=== PATIENT | male | born 1940 | race Caucasian/White ===

== ENCOUNTER 2019-12-09 16:25 | Emergency (ER) | payer MEDICARE, SELFPAY ==
[2019-12-09 16:26] VITALS: BP 154/81; PULSE 79; RESP 16; TEMP 36.2; O2SAT 97; BMI 38.0
--- NOTE | 2019-12-09 16:55 | ED.VIS.GEN ---
History of Present Illness Chief Complaint: Upper Extremity Injury Informant: Patient, Family Onset: Today Narrative: Mechanical fall 20 minutes prior to arrival. Washing his car he tripped over a parking block directly on his right shoulder. No head injuries. Pain worse with movement. Reports had a lower leg fracture in the past has tolerated Percocet. Intermittent nausea due to pain. No neck or back pain. No paresthesias. Prior similar symptoms: No Past Medical History - Allergies and Home Meds Allergies/Adverse Reactions: Allergies No Known Allergies Allergy (Verified 07/18/15 22:38) Primary Care Physician: Torsten Priest III, MD [Primary Care Provider] - Smoking Status: Never smoker Review of Systems General: Denies: Chills, Fever, Sweats Eyes: Denies: Visual changes - bilaterally, Diplopia ENT: Denies: Rhinorrhea, Sore throat Cardiovascular: Denies: Chest pain, Palpitations Respiratory: Denies: Dyspnea, Cough, Dyspnea on exertion Gastrointestinal: Denies: Abdominal pain, Nausea, Vomiting, Diarrhea, Melena, Hematochezia Genitourinary: Denies: Dysuria, Hematuria, Frequency Musculoskeletal: Reports: Arthralgias. Denies: Back pain, Extremity Pain Skin: Denies: Rash, Wounds Neurological: Denies: Headache, Weakness, Numbness Physical Exam Vital Signs/Narrative: Vital Signs Temp Pulse Resp BP Pulse Ox 12/09/19 16:26 97.1 F L 79 16 154/81 H 97 Inital Vital Signs reviewed: Yes General: Well nourished, Well developed, - - uncomfortable. Head: Normocephalic, Atraumatic Eyes: Perrl, EOMI ENT: Moist mucous membranes, No rhinorrhea Neck: Supple, Nontender Cardiovascular: Regular rate, Regular rhythm, No murmurs Respiratory: No distress, CTA bilaterally, Chest nontender Abdomen: Soft, Nontender, Nondistended, Normal bowel sounds Back: Nontender, Normal Inspection Extremities: No edema, - - Right upper extremity: No clavicular tenderness there is tender palpation proximal shoulder with no deformities. Pain with passive range of motion. No elbow pain. No wrist pain. Skin intact. Neurovascular intact distally. Skin: Normal color, No rash Neurological: Alert, Oriented x3, Cranial nerves II-XII grossly intact, Normal Sensation Psychological: Normal affect, Normal Mood Diagnostic/Tx/Re-eval Clinical Impression(s) from Imaging Studies Shoulder X-Ray 12/09/19 17:05 IMPRESSION: Comminuted humeral neck fracture with tuberosity involvement. Electronically Signed: Jason Smith MD (Brooks) at 17:23 EST , Service support , - Medical Decision Making Patient is discomfort with movement, morphine subcu was given x1 along with Zofran. X-ray confirms humeral neck fracture with anterior subluxation of the shaft. There is no dislocation. Sling and swath was placed. Spoke with orthopedist Dr. Roche will follow-up upcoming week for reevaluation and management plans as an outpatient. Prescription for Percocet and Colace was written. All questions were answered. ED Disposition - Plan for ED Patient: Disposition: Home or Assisted Living Diagnosis: Shoulder fracture, right Instructions: FRACTURE, Shoulder Prescriptions: Docusate Sodium [Colace] 100 mg PO DAILY #20 capsule Oxycodone HCl/Acetaminophen [Percocet 5/325] 1 tablet PO Q6H PRN PRN 3 Days #12 tablet PRN Reason: Pain Referrals: Herve Roche DO [STAFF PHYSICIAN] - 3-5 Days Additional Instructions: right humeral neck fracture on xray.
[2019-12-09] MEDS: Ondansetron ODT 4 MG Tablet 8 MG PO (16:58)
[2019-12-09] MEDS: Morphine 4 MG/ML Syringe SC (16:58)
--- NOTE | 2019-12-09 17:05 | RAD_ITS ---
STUDY: X-RAY - RIGHT SHOULDER REASON FOR EXAM: Male, 79 years old. PAIN S/P FALL TECHNIQUE: 3 view(s) of the shoulder. COMPARISON: None. FINDINGS: There is a comminuted fracture of the humeral head extending into the lesser and greater tuberosities with limited visualization of the humeral head. There is anterior subluxation of the humeral diaphyseal shaft on the scapular view. Normal acromioclavicular joint. Normal acromion. The soft tissue structures are unremarkable. There is diffuse soft tissue swelling. RAD/Shoulder min 2 Views IMPRESSION: Comminuted humeral neck fracture with tuberosity involvement. Electronically Signed: Jason Smith MD (Brooks) at 17:23 EST , Service support ,
[2019-12-09] MEDS: oxyCODONE 5 MG Tablet PO (18:18)
== END 2019-12-09 18:19 | disposition home or self-care (01) ==
PROVIDERS: Emergency Provider Emergency Medicine; PCP Family Medicine
DX: S42.251A Displaced fracture of greater tuberosity of right humerus, initial encounter for closed fracture (principal); S42.261A Displaced fracture of lesser tuberosity of right humerus, initial encounter for closed fracture; W18.09XA Striking against other object with subsequent fall, initial encounter; Y93.9 Activity, unspecified; Y92.9 Unspecified place or not applicable
CPT/HCPCS: 73030; 96372; 99283

== ENCOUNTER 2020-04-24 10:30 | Outpatient (RCR) | payer MEDICARE, SELFPAY ==
--- NOTE | 2019-12-27 16:07 | HP.PTEVAL ---
Patient's Visit Information HERNAN ROCK Sr. is a 79 year old M referred to Physical Therapy by ROLLY HUDSON with a diagnosis of CLOSED FX OR RIGHT PROX HUMERUS.. Date of Evaluation: 12/27/19 Physical Therapist: Tonie Christian PT, Cert MDT - Visit Plan Frequency: 2-3x /Week Duration: 4-6 Weeks Plan: POSTURE CORRECTION/STRENGTHENING, INSTRUCTION IN APPROPRIATE BODY MECHANICS AND ACTIVITY MODIFICATIONS. PHASE ONE SHLD REHAB PER PROTOCOL IN CABINET UNTIL FOLLOW UP WITH PHYSICIAN. PROM IN COMFORTABLE ROM ONLY. NO IR PER PROTOCOL. - Subjective Subjective: SURGERY: RIGHT REVERSE TOTAL SHLD REPLACEMENT DECEMBER 18 2019 (9 DAYS PO). 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 Present symptoms: RIGHT SHLD PAIN. PATIENT DENIES RIGHT UE NUMBNESS AND TINGLING IN THE LAST FEW DAYS. SOME STIFFNESS AND SORENESS IN THE MORNINGS ACROSS FRONT OF CHEST THAT PATIENT RELATES TO HIS SLING AND HOW HE HAS TO SLEEP. Present since: DECEMBER 09 2019. Pain Scale: Worst - 7/10 Least - 0/10. Currently: 0/10. Commenced as a result of: FALL - TRIPPED AT CAR WASH - PLOWED RIGHT SHLD INTO THE BACK TOP. Symptoms at onset: RIGHT UE PAIN, NUMBNESS AND TINGLING. Worse: PRESSURE ON THE FRONT OF THE SHOULDER AND ON THE TOP OF THE SHOULDER. Better: ICE. Disturbed sleep: YES. Previous history/Previous treatment: UNREMARKABLE. This episode: REVERSE TOTAL SHLD REPLM. Dizziness: NO. Tinnitis: NO. Nausea: NO. Shortness of Breath: SOB - CHRONIC. Difficulty Swollowing: NO. Gait: NORMAL. Accidents: UNREMARKABLE. Unexplained weight loss: NO. PMH/Recent major surgery: H/O RIGHT TIBIA FX. HIGH CHOLESTEROL. H/O PROSTATE CANCER. H/O METS TO SPINE TREATED RADIATION. OTHER: PATIENT REPORT HE CALLED THE DOCTOR YESTERDAY MORNING AND WAS TOLD THAT HE HAS TO WEAR THE SLING UNTIL JANUARY 23 2020 WHEN HE HAS A FOLLOW UP RADHA'T. REPORTS HE WAS GIVEN EX'S IN THE HOSPITAL - PATIENT DESCRIBES ACTIVE RIGHT FOREARM PRONATION AND SUPINATION AND RIGHT UE PENDULUM EX ALONG WITH AAROM OF RIGHT ELBOW INTO FLEXION WITH ASSIST OF LEFT UE. - Objective Sitting Posture/Standing Posture: POOR. FH. RSH'S. Active Correction of posture: NE. Other Observations: INDEP SLOW GAIT INTO PT WEARING RIGHT UE SLING. INDEP TRANSFERS SIT TO STAND. PATIENT REQUESTING NOT TO LIE DOWN. MEASUREMENTS TAKEN IN SITTING TODAY. Motor deficit: NT. Sensory deficit: RIGHT SHLD, ARM, ELBOW AND FOREARM IS HYPERSENSATIVE. OTHERWISE RIGHT UE LIGHT TOUCH SENSATION IS INTACT. ROM deficit: MINUS 40 DEG OF RIGHT SLD PASSIVE ER AND ONLY APPROX 55 DEG RIGHT SHLD PASSIVE FORWARD FLEXION WITH PENDULUM EX. AROM WFL OF RIGHT FOREARM, WIRST AND HAND. RIGHT ELBOW AAROM WFL. Cervical Mvmt Loss: Flex: NIL. Pro: NIL. Ext: MOD. Ret: TEODORO. RSB: MOD. LSB: TEODORO. R Rot: MOD. L Rot: MOD. PATIENT DENIES PAIN WITH CERVICAL ROM TESTING ALL PLANES - JUST STIFF. Postural strength: POOR. Palpation: INCISION LOOKS GOOD WITHOUT ANY SIGNS OF INFECTION. MODERATE RIGHT UE EDEMA. OTHER: A LOT OF RIGHT SHLD AND ARM (EVEN EXTENDING BELOW ELBOW) ECCYMOSIS. TREATMENT: INSTRUCTED PATIENT IN CURRENT PROTOCOL FOR PHASE I PROTOCOL ORDERED. INSTRUCTED IN PASSIVE RIGHT UE PENDULUMS, ACTIVE RIGHT FOREARM, WRIST AND HAND ROM, AA RIGHT ELBOS FLEX/EXT AND GENTLE AAROM INTO EXTERNAL ROTATION. EMPHASIZED TO PATIENT TO EX IN A COMFORTABLE ROM. ENCOURAGED COMPLIANCE WITH SLING USE RECOMMENDED TO PATIENT BY PHYSICIAN. - Goals Goal 1:: DECREASE C/O RIGHT UE PAIN Goal Time Frame: 4-6 Weeks Goal 2:: INCREASE FUNCTIONAL ROM OF RIGHT UE Goal Time Frame: 4-6 Weeks Goal 3:: INCREASE FUNCTIONAL STRENGTH OF RIGHT UE Goal Time Frame: 4-6 Weeks Goal 4:: PATIENT WILL BE INDEP WITH A HEP FOR CONTINUED IMPROVEMENT ONCE FORMAL PHYSICAL THERAPY CONCLUDES. Goal Time Frame: 4-6 Weeks - Rehabilitation Potential Rehabilitation Potential: Fair - Anticipated Interventions Patient/Client Instruction: Educate patient on: Condition, Plan of Care, Risk Factors, Benefits of Fitness Program For the Purpose of:: To improve self management Therapeutic Exercise to Include: Strength training, Body mechanics, Postural training, Flexibilty training, Neuromotor development, Passive ROM, Active ROM, Scapular Strength/Stabilization For the Purpose of:: To decrease pain, To increase ROM, To improve muscle performance and motor function, To increase tolerance to activity/condition/position, To improve ability of physical actions for home/community/work/leisure Manual Therapy Techniques to Include: Passive ROM For the Purpose of:: To increase ROM Cryotherapy (ice pack, ice massage): Yes Thermo therapy (hot pack): Yes For the Purpose of:: To decrease pain, To decrease swelling/inflammation Thank you for the opportunity to evaluate your patient. For Medicare and Medicare HMO plans, please review the plan of care and approve it. It will need to be FAXED BACK to us at [phone] for Medicare purposes. For Medicare only, by signing this I certify the plan of care. Please let me know if there are questions or concerns regarding this plan of care. Physician Signature: Date:
--- NOTE | 2020-01-22 17:34 | HP.PTREVAL ---
ROLLY HUDSON, It has been my pleasure to treat HERNAN ROCK Sr. over the last 21 visits for CLOSED FX OR RIGHT PROX HUMERUS.. Please see the progress note below for an update on the physical therapy plan of care! Subjective: PATIENT REPORTS HE IS MAKING PROGRESS. FOLLOW UP SCHEDULED WITH DR. MITCHELL WEDNESDAY. PATIENT REPORTS HE IS PAINFREE MOST OF THE TIME. IF HE LEANS INTO IT TOO MUCH IN SITTING HE GETS UP TO 3/10 PAIN BRIEFLY AT THE MOST. PATIENT REPORTS HE IS HAVING A HARD TIME FOLLOWING THE RESTRICTIONS HE HAS BEEN GIVEN. STATES HE BENT DOWN TO TIE HIS SHOE ACCIDENTLY AND THEN REMEMBERED HE PROBABLY SHOULDN'T BE DOING THAT BUT NO REPERCUSSIONS. PATIENT REPORTS HE IS BACK TO SLEEP NORMAL FOR HIM AND HE IS PROGRESSIVELY GETTING MORE ACTIVE. STATES HE IS MUCH MORE ACTIVE SINCE STARTING PT. STATES HE HASN'T HAD TO TAKE ANY PAIN MEDICINE SINCE STARTING PT. Objective/Function: PATIENT WAS SEEN TODAY FOR RE-ASSESSMENT OF PROGRESS TOWARD THE SET PT GOALS AND THE NEED FOR FURTHER PHYSICAL THERAPY VS READINESS FOR DISCHARGE. PATIENT IS MAKING GOOD PROGRESS TOWARD ALL PT GOALS AND IS A GOOD CANDIDATE TO CONTINUE SKILLED PT BASED ON PROGRESS MADE AND ROOM FOR FURTHER IMPROVEMENT. PATIENT IS AGREEABLE. UPON EXAM TODAY: Motor deficit: RIGHT SHLD ALL PLANES. MMT - NT. Sensory deficit: GENIE UE LIGHT TOUCH SENSATION IS INTACT AND SYMMETRICAL NOW EXCEPT SOME DULLNESS REPORTED IN A LOCALIZED AREA ABOVE INCISION WITH TESTING TODAY. ROM deficit: +10 DEG OF RIGHT SLD PASSIVE ER AND APPROX 110 DEG RIGHT SHLD PASSIVE FORWARD FLEXION. AROM WFL OF RIGHT ELBOW, FOREARM, WIRST AND HAND. Cervical Mvmt Loss: Flex: NIL. Pro: NIL. Ext: MOD. Ret: TEODORO. RSB: MOD. LSB: TEODORO. R Rot: MOD. L Rot: MOD. Postural strength: POOR. Palpation: INCISION LOOKS GOOD WITHOUT ANY SIGNS OF INFECTION. MODERATE RIGHT UE EDEMA DECREASING. Plan Plan: CONTINUE POSTURE CORRECTION/STRENGTHENING, INSTRUCTION IN APPROPRIATE BODY MECHANICS AND ACTIVITY MODIFICATIONS. PHASE ONE SHLD REHAB PER PROTOCOL IN CABINET UNTIL FOLLOW UP WITH PHYSICIAN WEDNESDAY. PROM IN COMFORTABLE ROM ONLY. NO IR PER PROTOCOL. Goals Goal 1:: DECREASE C/O RIGHT UE PAIN Goal Time Frame: 4-6 Weeks Goal Progress: Progressing Goal 2:: INCREASE FUNCTIONAL ROM OF RIGHT UE Goal Time Frame: 4-6 Weeks Goal Progress: Progressing Goal 3:: INCREASE FUNCTIONAL STRENGTH OF RIGHT UE Goal Time Frame: 4-6 Weeks Goal Progress: Progressing Goal 4:: PATIENT WILL BE INDEP WITH A HEP FOR CONTINUED IMPROVEMENT ONCE FORMAL PHYSICAL THERAPY CONCLUDES. Goal Time Frame: 4-6 Weeks Goal Progress: Progressing Anticipated Interventions Patient/Client Instruction: Educate patient on: Condition, Plan of Care, Risk Factors, Benefits of Fitness Program For the Purpose of:: To improve self management Therapeutic Exercise to Include: Strength training, Body mechanics, Postural training, Flexibilty training, Neuromotor development, Passive ROM, Active ROM, Scapular Strength/Stabilization For the Purpose of:: To decrease pain, To increase ROM, To improve muscle performance and motor function, To increase tolerance to activity/condition/position, To improve ability of physical actions for home/community/work/leisure Manual Therapy Techniques to Include: Passive ROM For the Purpose of:: To increase ROM Cryotherapy (ice pack, ice massage): Yes Thermo therapy (hot pack): Yes For the Purpose of:: To decrease pain, To decrease swelling/inflammation Please do not hesitate to contact me at [phone] by phone or if you have questions or concerns regarding this new plan of care! Sincerely, Tonie Christian, PT, Cert MDT
--- NOTE | 2020-03-08 16:03 | HP.PTREVAL_ITS ---
ROLLY HUDSON, It has been my pleasure to treat HERNAN ROCK Sr. over the last 37 visits for CLOSED FX OR RIGHT PROX HUMERUS.. Please see the progress note below for an update on the physical therapy plan of care! Subjective: PATIENT REPORTS THAT HIS SHOULDER IS TIGHTER THAN USUAL TODAY. STATES IT FEELS LIKE THERE IS A BAND AROUND IT. REPORTS THAT IN ADDITION TO STRAINING REACHING BEHIND HIS BACK THE OTHER DAY HE ALSO DID SOMETHING ELSE HE KNOWS HE SHOULDN'T HAVE DONE. LAST NIGHT HE REACHED AND STRAINED TO PUT A HOOK ON THE SPOUTING AND THEN HUNG A BIRD HOUSE FROM IT. PATIENT REPORTS THAT OVER- ALL HE IS ABOUT 85% BETTER AND WANTS TO SEE IF HE CAN CONTINUE TO IMPROVE ON HIS OWN AT THIS POINT. PLEASANTLY SURPRISED TO BE ABLE TO USE HIS RIGHT HAND TO WASH HIS HAIR NOW. PATIENT REPORTS INCREASED STIFFNESS ON THE DAYS HE HAS OVER- ZELOUS TREATMENTS. Objective/Function: PATIENT WAS SEEN TODAY FOR RE-ASSESSMENT OF PROGRESS TOWARD THE SET PT GOALS AND THE NEED FOR FURTHER PHYSICAL THERAPY VS READINESS FOR DISCHARGE. PATIENT IS MAKING GOOD PROGRESS TOWARD ALL PT GOALS AND IS A GOOD CANDIDATE TO CONTINUE SKILLED PT BASED ON PROGRESS MADE AND ROOM FOR FURTHER IMPROVEMENT HOWEVER PATIENT WOULD LIKE TO CONTINUE ON HIS OWN AND IS AGREEABLE TO A RE-CHECK IN 2 WKS. UPON EXAM TODAY: Motor deficit: RIGHT SHOULDER WEAKNESS ALL PLANES. ABLE TO ELEVATE RIGHT UE ABOUT 120 DEG ACTIVELY TODAY BUT IT IS TIGHTER THAN USUAL (SEE SUBJECTIVE). ABLE TO ELEVATE TO AT LEAST 130 DEG EARLIER THIS WEEK. ROM deficit: +25 DEG OF RIGHT SHLD ACTIVE AND PASSIVE ER AND APPROX 120 DEG RIGHT SHLD PASSIVE FORWARD FLEXION. AROM WFL OF RIGHT ELBOW, FOREARM, WIRST AND HAND. Postural strength: POOR. OTHER: PATIENT DID WELL WITH ALL HEP INSTRUCTIONS TODAY. Plan Plan: RE-CHECK IN 2 WKS. CONTINUE PER PROTOCOL. Goals Goal 1:: DECREASE C/O RIGHT UE PAIN Goal Time Frame: 4-6 Weeks Goal Progress: Progressing Goal 2:: INCREASE FUNCTIONAL ROM OF RIGHT UE Goal Time Frame: 4-6 Weeks Goal Progress: Progressing Goal 3:: INCREASE FUNCTIONAL STRENGTH OF RIGHT UE Goal Time Frame: 4-6 Weeks Goal Progress: Progressing Goal 4:: PATIENT WILL BE INDEP WITH A HEP FOR CONTINUED IMPROVEMENT ONCE FORMAL PHYSICAL THERAPY CONCLUDES. Goal Time Frame: 4-6 Weeks Goal Progress: Progressing Anticipated Interventions Patient/Client Instruction: Educate patient on: Condition, Plan of Care, Risk Factors, Benefits of Fitness Program For the Purpose of:: To improve self management Therapeutic Exercise to Include: Strength training, Body mechanics, Postural training, Flexibilty training, Neuromotor development, Passive ROM, Active ROM, Scapular Strength/Stabilization For the Purpose of:: To decrease pain, To increase ROM, To improve muscle performance and motor function, To increase tolerance to activity/condition/position, To improve ability of physical actions for home /community/work/leisure Manual Therapy Techniques to Include: Passive ROM For the Purpose of:: To increase ROM Cryotherapy (ice pack, ice massage): Yes Thermo therapy (hot pack): Yes For the Purpose of:: To decrease pain, To decrease swelling/inflammation Please do not hesitate to contact me at [phone] by phone or if you have questions or concerns regarding this new plan of care! Sincerely, Tonie Christian, PT, Cert MDT
--- NOTE | 2020-04-09 12:01 | HP.PTREVAL_ITS ---
ROLLY HUDSON, It has been my pleasure to treat HERNAN ROCK Sr. over the last 38 visits for CLOSED FX OR RIGHT PROX HUMERUS.. Please see the progress note below for an update on the physical therapy plan of care! Subjective: PATIENT REPORTS HE CAN NOW PRETTY MUCH DO EVERYTHING WITH HIS RIGHT ARM THAT HE USE TO BE ABLE TO DO AND HE IS HAPPY WITH IT. OCCASSIONALLY GETS A PINCHING PAIN BUT MOSTLY PAINFREE. STATES THAT THE OTHER DAY HE TRIED TO SHAKE A KETCHUP BOTTLE PRETTY HARD AND IT IMMEDIATELY LET HIM KNOW NOT TO DO THAT. DOES GET SOME ACHING IF HER OVER DOES IT. CAN SHAVE WITH RIGHT ARM FOR THE PAST FEW WEEKS NOW AND FEELS NATURAL. REPORTS NON COMPLIANCE WITH HOME EX'S IN GENERAL. STATES HE HASN'T HAD ANY RECENT FOLLOW UPS WITH DR. MITCHELL. PATIENT REPORTS HE DOES NOT WANT TO RETURN TO THERAPY. 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 PATIENT REPORTS HE BOUGHT A LINDA BUT IT IS STILL IN THE PACKAGE. Objective/Function: PATIENT WAS SEEN TODAY FOR RE-ASSESSMENT OF PROGRESS TOWARD THE SET PT GOALS AND THE NEED FOR FURTHER PHYSICAL THERAPY VS READINESS FOR DISCHARGE. PATIENT IS HAVING LESS PAIN, MORE STRENGTH AND FUNCTION IS IMPROVING OVER-ALL BUT HIS ROM HAS NOT CHANGED MUCH SINCE LAST VISIT. HE IS A GOOD CANDIDATE TO CONTINUE SKILLED PT HOWEVER PATIENT WOULD LIKE TO CONTINUE ON HIS OWN AND IS AGREEABLE TO A RE-CHECK IN 2 WKS. UPON EXAM TODAY: Motor deficit: RIGHT SHOULDER WEAKNESS ALL PLANES. ABLE TO ELEVATE RIGHT UE ABOUT 130 DEG ACTIVELY TODAY. ROM deficit: +25 DEG OF RIGHT SHLD ACTIVE ER AND PASSIVE ER TO APPROX 30 DEG. APPROX 140 DEG RIGHT SHLD PASSIVE FORWARD FLEXION. AROM WFL OF RIGHT ELBOW, FOREARM, WIRST AND HAND. PATIENT ADMITS GENERAL NON-COMPLIANCE TO HOME EX AND REALLY DOES NOT WANT TO COME TO PT REGULARLY BUT IS OPEN TO ANOTHER FOLLOW UP TO CHECK TO MAKE SURE HE ISN'T REGRESSING AND TO PROGRESS HEP ABLE. AFTER SESSION TODAY HE SEEMS TO HAVE A RENEWED MOTIVATION TO DO HIS HEP. Plan Plan: RE-CHECK IN 2 WKS. CONSIDER ADDING ACTIVE SHLD FLEX TO 90 DEG AND SCAPTION TO 90 DEG WITH BACK AGAINST WALL NEXT VISIT. ALSO CONSIDER ADDING TBAND TRICEPS. CONTINUE PER PROTOCOL. Goals Goal 1:: DECREASE C/O RIGHT UE PAIN Goal Time Frame: 4-6 Weeks Goal Progress: Progressing Goal 2:: INCREASE FUNCTIONAL ROM OF RIGHT UE Goal Time Frame: 4-6 Weeks Goal Progress: Progressing Goal 3:: INCREASE FUNCTIONAL STRENGTH OF RIGHT UE Goal Time Frame: 4-6 Weeks Goal Progress: Progressing Goal 4:: PATIENT WILL BE INDEP WITH A HEP FOR CONTINUED IMPROVEMENT ONCE FORMAL PHYSICAL THERAPY CONCLUDES. Goal Time Frame: 4-6 Weeks Goal Progress: Progressing Anticipated Interventions Patient/Client Instruction: Educate patient on: Condition, Plan of Care, Risk Factors, Benefits of Fitness Program For the Purpose of:: To improve self management Therapeutic Exercise to Include: Strength training, Body mechanics, Postural training, Flexibilty training, Neuromotor development, Passive ROM, Active ROM, Scapular Strength/Stabilization For the Purpose of:: To decrease pain, To increase ROM, To improve muscle performance and motor function, To increase tolerance to activity/condition/position, To improve ability of physical actions for home/community/work/leisure Manual Therapy Techniques to Include: Passive ROM For the Purpose of:: To increase ROM Cryotherapy (ice pack, ice massage): Yes Thermo therapy (hot pack): Yes For the Purpose of:: To decrease pain, To decrease swelling/inflammation Please do not hesitate to contact me at [phone] by phone or Fax: if you have questions or concerns regarding this new plan of care! Sincerely, Tonie Christian, PT, Cert MDT
--- NOTE | 2020-04-24 11:26 | HP.PTDCSUM ---
It has been my pleasure to treat HERNAN ROCK Sr. referred by ROLLY HUDSON, with the diagnosis of CLOSED FX OR RIGHT PROX HUMERUS. for a total of 39 visit(s). Discharge Date: Please see the following information for a summary of their discharge status. Subjective: PATIENT REPORTS I AM PROBABLY NOT GOING TO BE HAPPY WITH HOW STIFF HIS ARM IS BUT IT IS BECAUSE WHAT HE HAS BEEN DOING WITH IT. STATES HE HAS BEEN WORKING IT HARD AND WORKING IT IF THERE ISN'T ANYTHING WRONG WITH IT. UNLOADED 5 GALLON BUCKETS OF WATER, BUILDING A HOUSE, USING A HAMMER. STATES HE PAYS FOR IT LATER AND JUST TAKES ADVIL NEEDED. PATIENT IS HAPPY TO REPORT HE CAN USE HIS RIGHT HAND TO PUT DEODORANT ON LEFT UE. USING RIGHT HAND TO DO EVERYTHING NOW BUT DOES OVER DO IT AND HURTS SOMETIMES. STATES HE FEELS READY TO BE DISCHARGED AND KNOW HE CAN COME BACK IF HE NEEDS TO. PATIENT REPORTS HE DOES HAVE A CLICK NOW IN THE RIGHT SHOULDER AFTER SWINGING A HAMMER 3 TIMES IN A ROW AND DECIDED NOT TO SWING A 4TH TIME. TO ME I DON'T FEEL LIKE I HAVE ANY LIMITED MOTION BUT I STILL HAVE LIMITED STAMINA. R SH Pain Intensity (Out of 10): 3 % Improvement: 95 Objective/Function: PATIENT WAS SEEN TODAY FOR RE-ASSESSMENT OF PROGRESS TOWARD THE SET PT GOALS AND THE NEED FOR FURTHER PHYSICAL THERAPY VS READINESS FOR DISCHARGE. PATIENT IS HAVING LESS PAIN, MORE STRENGTH AND FUNCTION IS IMPROVING OVER-ALL AND HIS ROM HAS EVEN IMPROVED MUCH SINCE LAST VISIT. UPON EXAM TODAY: Motor deficit: RIGHT SHOULDER WEAKNESS ALL PLANES. ABLE TO ELEVATE RIGHT UE ABOUT 139 DEG ACTIVELY TODAY. ROM deficit: +30 DEG OF RIGHT SHLD ACTIVE ER AND PASSIVE ER TO APPROX 40 DEG. APPROX 140 DEG RIGHT SHLD PASSIVE FORWARD FLEXION. AROM WFL OF RIGHT ELBOW, FOREARM, WIRST AND HAND. PATIENT IS EXPRESSING INCREASED COMPLIANCE WITH HOME EX'S NOW AND WILL CONTACT US IF HE FEELS HE NEEDS TO COME BACK. Goal 1:: DECREASE C/O RIGHT UE PAIN Goal Progress: Progressing Goal 2:: INCREASE FUNCTIONAL ROM OF RIGHT UE Goal Progress: Progressing Goal 3:: INCREASE FUNCTIONAL STRENGTH OF RIGHT UE Goal Progress: Progressing Goal 4:: PATIENT WILL BE INDEP WITH A HEP FOR CONTINUED IMPROVEMENT ONCE FORMAL PHYSICAL THERAPY CONCLUDES. Goal Progress: Goal Met Plan: D/C. PATIENT AGREEABLE. If there are questions or concerns regarding this patient's physical therapy, please feel free to call me at [phone]. Thank you for the referral of this patient. Sincerely, Tonie Christian PT, Cert MDT
== END 2020-04-24 19:00 | disposition home or self-care (01) ==
LOC: PT 10:30
PROVIDERS: PCP Family Medicine
DX: S42.201D Unspecified fracture of upper end of right humerus, subsequent encounter for fracture with routine healing (principal); Z96.611 Presence of right artificial shoulder joint
CPT/HCPCS: 97110; 97140; 97162; 97164; 97530

== ENCOUNTER 2021-02-06 15:29 | Emergency (ER) | payer MEDICARE, SELFPAY ==
[2020-05-13 08:31] VITALS: BMI 38.0
[2021-02-06 15:30] VITALS: BP 139/84; PULSE 84; RESP 16; TEMP 36.2; O2SAT 95; BMI 36.0
--- NOTE | 2021-02-06 15:30 | RAD_ITS ---
STUDY: X-RAY - UNILATERAL RIBS ( LEFT ) WITH CHEST REASON FOR EXAM: Male, 80 years old. FALL LEFT RIB PAIN TECHNIQUE - RIBS: 4 view(s) of the ribs. TECHNIQUE - CHEST: AP portable COMPARISON: None. FINDINGS - RIBS: There are acute mildly displaced fractures of the seventh and possibly eighth ribs. FINDINGS - CHEST: Less than optimal inspiratory effort is seen however the lungs are clear.. There is no demonstrated pleural abnormality. Normal size heart. Normal mediastinum and claritza. Normal visualized pulmonary arteries. Tortuous mildly calcified aortic arch and descending thoracic aorta. Normal visualized thoracic spine. Normal visualized clavicles. Right shoulder prosthesis is noted. There is no demonstrated abnormality of the visualized soft tissue structures of the upper abdomen. RAD/Ribs Uni Min 3V w/PA Chest IMPRESSION: RIBS: Acute fractures of the seventh and possibly eighth ribs. CHEST: No acute cardiopulmonary pathology. Electronically Signed: Brandt Ansari MD at 16:18 EDT , Service support ,
--- NOTE | 2021-02-06 16:29 | CT_ITS ---
STUDY: CT BRAIN WITHOUT CONTRAST REASON FOR EXAM: Male, 80 years old. trauma RADIATION DOSAGE (If Supplied By Facility): CTDIvol = ( 44.99 ) mGy, DLP = ( 846.73 ) mGycm TECHNIQUE: Transaxial CT imaging of the brain was performed without administration of intravenous contrast material. Individualized dose optimization techniques were used for this CT. COMPARISON: No relevant priors. FINDINGS: Normal soft tissue structures. Normal calvarium. Calcification of cavernous carotids Mild atrophy and periventricular white matter ischemic changes.. Normal basal ganglia and thalami. Normal brainstem. Normal cerebellum. Empty sella deformity likely of no significance. There is no intracranial hemorrhage. There are no findings of an acute ischemic infarction. Bilateral choroidal calcifications of the orbits are noted Normal visualized paranasal sinuses. CT/Brain/Head without Contrast IMPRESSION: Mild atrophy and periventricular white matter ischemic change. No evidence for acute intracranial bleed Electronically Signed: Brandt Ansari MD at 17:53 EDT , Service support ,
--- NOTE | 2021-02-06 16:29 | CT_ITS ---
STUDY: CT CERVICAL SPINE WITHOUT CONTRAST REASON FOR EXAM: Male, 80 years old. trauma RADIATION DOSAGE (If Supplied By Facility): CTDIvol = ( 30.16 ) mGy, DLP = ( 630.72 ) mGycm TECHNIQUE: High resolution transaxial imaging was performed without contrast material. Sagittal and coronal images were reconstructed. Individualized dose optimization techniques were used for this CT. COMPARISON: None FINDINGS: Normal craniovertebral junction. Normal anterior atlantoaxial articulation. Normal odontoid process. Normal cervical lordosis. Normal vertebral bodies and posterior osseous elements. C2-3: Normal endplates. Normal disc height and morphology. Normal central canal and intervertebral neuroforamina. C3-4: Normal endplates. Normal disc height and morphology. Normal central canal and intervertebral neuroforamina. C4-5: Mild endplate spurring.. Normal disc height and morphology. Normal central canal and intervertebral neuroforamina. C5-6: Mild endplate spurring.. Normal disc height and morphology. Normal central canal and intervertebral neuroforamina. C6-7: Narrowed disc space and endplate spurring. Normal central canal. Severe right neuroforaminal stenosis and moderate narrowing on the left secondary to bony hypertrophy C7-T1: Normal endplates. Normal disc height and morphology. Normal central canal and intervertebral neuroforamina. Normal visualized soft tissue structures. CT/Spine Cervical without Contras IMPRESSION: No evidence for acute fracture or other significant bony pathology. Mild spondylosis most severe at C6-7 Incidental finding of solid nodule in the right lobe of the thyroid which may be further assessed with ultrasound Electronically Signed: Brandt Ansari MD at 17:56 EDT , Service support ,
--- NOTE | 2021-02-06 16:40 | EX.ED.GENINJ ---
HPI History of Present Illness Chief Complaint: Chest Other Informant: patient Onset/Context/Timing Onset: Today Mechanism/Context: Slip Location of pain/injuries: Right hip Quality of Pain: Sharp Current Severity: Moderate Maximum Severity: Moderate Narrative Narrative: The patient is a 80-year-old male history of underlying gait dysfunction who ambulates with a cane who presents to the emergency department for fall. Patient was on his porch. He lost his balance and fell. He fell backwards landing on his left chest and struck his head. He also had pain in his right hip. He states the pain in his hip is chronic and he has been dealing with it for some time. He does take Naprosyn. He is not on anticoagulants. He states that most of the pain is in his chest. He denies being short of breath. He denies any fevers or chills. Prior similar symptoms: No Recent Illness/Hospitalization: No [facility] Medical History (Updated 02/06/21 @ 18:[address] Herve Lerner MD) Constipation High cholesterol Personal history of colonic polyps Home Medications aspirin 81 mg PO DAILY 12/09/19 [History Last Taken Unknown] multivitamin with minerals 1 ea PO DAILY 12/09/19 [History Last Taken Unknown] atorvastatin 10 mg tablet 20 mg PO QHS tab 05/13/20 [History Last Taken Unknown] hydrocodone-acetaminophen 1 tab PO Q6H PRN PRN 3 Days #10 tablet 02/06/21 [Rx Last Taken Unknown] ondansetron 4 mg PO Q8H PRN PRN #10 tab 02/06/21 [Rx Last Taken Unknown] Allergy/AdvReac Type Severity Reaction Status Date / Time No Known Allergies Allergy Verified 05/13/20 08:29 Surgical History History of prostatectomy Social History Smoking Status: Former smoker alcohol intake: never substance use type: does not use ROS ROS ED Constitutional Constitutional ED: Denies chills or fever(s) Eyes Eyes: Denies blurry vision or change in vision ENT ENT ED: Denies ear pain or sore throat Cardiovascular Cardiovascular: Denies chest pain or palpitations Respiratory/Chest Respiratory/Chest: Denies cough, dyspnea or dyspnea on exertion Gastrointestinal Gastrointestinal: Denies abdominal pain, nausea or vomiting Genitourinary Genitourinary ED: Denies dysuria or urinary frequency Musculoskeletal Musculoskeletal: Denies arthralgias or myalgias Integumentary Denies rash Neurologic Neurologic: Denies headache(s) or paresthesias Psychiatric Psychiatric: Denies anxiety or depression Endocrine Endocrinology: Denies polydipsia or polyuria Allergic/Immunologic Allergic/Immunologic ED: Denies urticaria EXAM Physical Exam Const Vital Signs: 02/06/21 15:30 02/06/21 16:58 Temperature 97.2 F L Temperature Source Temporal Pulse Rate 84 Respiratory Rate 16 Respiratory Effort Normal Blood Pressure 139/84 H Blood Pressure Mean 102 Pulse Ox 95 Oxygen Delivery Method Room Air Positive well nourished and well developed General Appearance ED: well developed HEENT Reports normocephalic, head/scalp atraumatic and moist mucous membranes Eyes PERRL and EOMs intact bilaterally Neck no lymphadenopathy and supple General: Negative for tenderness Chest Wall inspection of chest normal Resp normal respiratory effort and clear to auscultation bilaterally Cardio regular rate, regular rhythm and no murmurs GI normal to inspection, nondistended, normoactive bowel sounds Palpation: Negative for tender, guarding or rebound tenderness present Back/Spine no CVA tenderness Cervical Spine: Negative for cervical spine tenderness Thoracic Spine / Upper Back: Negative for thoracic spinal tenderness Extremity normal to inspection General Extremety ED: Negative for tenderness Neuro oriented x3 and CN's II-XII intact bilaterally Neuro Narrative: No focal deficits appreciated. Sensorium / Orientation: alert Psych mental status grossly normal Skin no rashes or lesions noted, no wounds and skin turgor normal MDM MDM MDM Narrative Medical decision making narrative: The patient presents after mechanical fall. He did strike his left ribs. He had his head but did not lose consciousness. X-rays were obtained in triage which showed a displaced fracture of the left seventh rib. With given mechanism, I did obtain CT of the head and C-spine. Both were unremarkable for acute process. X-rays of the pelvis were also obtained which were negative. Patient was given oral Edison with improvement of his pain. He is now resting comfortably. At this point, I do feel that he is safe for outpatient therapy. He is not hypoxic or tachypneic. He has no evidence of pneumothorax. Patient will be discharged home. Impression 1. Mechanical fall 2. Left seventh rib fracture Lab Data Attestation: I reviewed the patient's lab results. Radiography Diagnostic Testing: Radiology Impression Ribs w/Chest X-Ray 02/06/21 15:30 IMPRESSION: RIBS: Acute fractures of the seventh and possibly eighth ribs. CHEST: No acute cardiopulmonary pathology. Electronically Signed: Brandt Ansari MD at 16:18 EDT , Service support , Brain CT 02/06/21 16:29 IMPRESSION: Mild atrophy and periventricular white matter ischemic change. No evidence for acute intracranial bleed Electronically Signed: Brandt Ansari MD at 17:53 EDT , Service support , Cervical Spine CT 02/06/21 16:29 IMPRESSION: No evidence for acute fracture or other significant bony pathology. Mild spondylosis most severe at C6-7 Incidental finding of solid nodule in the right lobe of the thyroid which may be further assessed with ultrasound Electronically Signed: Brandt Ansari MD at 17:56 EDT , Service support , Hip/Pelvis X-Ray 02/06/21 17:10 IMPRESSION: No evidence for acute hip or pelvic fractures Electronically Signed: Brandt Ansari MD at 17:29 EDT , Service support , Discharge Plan Triage Chief Complaint: Chest Other ED Provider: Herve Lerner Dx/Rx/DC Orders Clinical Impression: Fracture of rib Instructions: ED Rib Fracture Prescriptions: New hydrocodone-acetaminophen [hydrocodone-acetaminophen] 1 TABLET tablet 1 tab PO Q6H PRN PRN (Reason: Pain) 3 Days Qty: 10 RF: 0 ondansetron [ondansetron] 4 MG tablet 4 mg PO Q8H PRN PRN (Reason: Nausea) Qty: 10 RF: 0 No Action aspirin 81 MG tablet,chewable 81 mg PO DAILY RF: 0 multivitamin with minerals 1 EACH tablet 1 ea PO DAILY RF: 0 atorvastatin 10 mg tablet 20 mg PO QHS RF: 0 Primary Care Provider: Torsten Priest III Referrals: Torsten Priest III, MD [Primary Care Provider] -
[2021-02-06] MEDS: HYDROcodone Bitartrate/Apap 5/325 Tablet PO (16:51)
[2021-02-06] MEDS: Ondansetron ODT 4 MG Tablet PO (16:51)
--- NOTE | 2021-02-06 17:10 | RAD_ITS ---
STUDY: X-RAY - PELVIS AND RIGHT HIP REASON FOR EXAM: Male, 80 years old. truama TECHNIQUE: 4 views of the pelvis and hip. COMPARISON: None. FINDINGS: There is a non-specific bowel gas pattern. There are surgical clips noted within the lower pelvis.. Normal bilateral iliac wings, sacroiliac joints and visualized sacrum. Normal bilateral superior and inferior pubic rami. Normal pubic symphysis. Normal bilateral ischial tuberosities. Normal visualized femoral head. Normal acetabulum. Normal hip joint. RAD/HIP, UNI W/ Pelvis 2-3 Views IMPRESSION: No evidence for acute hip or pelvic fractures Electronically Signed: Brandt Ansari MD at 17:29 EDT , Service support ,
[2021-02-06 19:08] VITALS: BP 143/79
== END 2021-02-06 19:07 | disposition home or self-care (01) ==
PROVIDERS: Emergency Provider Emergency Medicine; PCP Family Medicine
DX: S22.32XA Fracture of one rib, left side, initial encounter for closed fracture (principal); M25.551 Pain in right hip; G89.29 Other chronic pain; W01.0XXA Fall on same level from slipping, tripping and stumbling without subsequent striking against object, initial encounter; Y93.9 Activity, unspecified; Y92.9 Unspecified place or not applicable; E78.00 Pure hypercholesterolemia, unspecified; Z87.19 Personal history of other diseases of the digestive system; Z86.010 Personal history of colon polyps; Z79.82 Long term (current) use of aspirin; Z79.899 Other long term (current) drug therapy; Z87.891 Personal history of nicotine dependence
CPT/HCPCS: 70450; 71101; 72125; 73502; 99251; 99285; G0463

== ENCOUNTER → 2024-01-14 | Outpatient (CLI) | payer MEDICARE, SELFPAY ==
--- NOTE | 2024-01-14 09:50 | RAD_ITS ---
STUDY: X-RAY CHEST REASON FOR EXAM: Male, 83 years old. Ongoing cough TECHNIQUE: Single AP portable view of the chest. COMPARISON: Comparison is made with prior study February 06, 2021. FINDINGS: Elevation of the right hemidiaphragm. Stable mild increased markings at the left lung base suggestive of scarring. There is no demonstrated pleural abnormality. Normal size heart. Normal mediastinum and claritza. Normal visualized pulmonary arteries. There is atherosclerotic calcification of the aortic arch with tortuosity. There are diffuse degenerative changes of the visualized thoracic spine. Prior right shoulder replacement. There is no demonstrated abnormality of the visualized soft tissue structures of the upper abdomen. RAD/Chest PA and Lateral IMPRESSION: Hyperinflation. Stable linear scarring at the left lung base. Electronically Signed: Carlos Benitez MD at 10:13 EDT ,
== END | disposition home or self-care (01) ==
LOC: MTRAD 09:45
PROVIDERS: PCP Family Medicine; Referring Provider Physician Assistant Surgical; Visit Provider Physician Assistant Surgical
DX: J18.9 Pneumonia, unspecified organism (principal); R05.3 Chronic cough
CPT/HCPCS: 71046

== ENCOUNTER 2024-10-26 04:34 | Emergency (ER) | payer MEDICARE, SELFPAY ==
[2024-10-26 04:35] VITALS: BP 115/62; PULSE 93; RESP 20; TEMP 36.8; O2SAT 98; BMI 38.8
[2024-10-26 04:37] VITALS: BP 115/62; PULSE 93; RESP 20; TEMP 36.8; O2SAT 98
--- NOTE | 2024-10-26 04:57 | EDS_ITS ---
HPI History of Present Illness Chief Complaint: Nausea/Vomiting/Diarrhea Informant: patient and family Narrative Narrative: Patient is an 83-year-old male with past ministry of hypertension hyperlipidemia congestive heart failure and chronic neck and back pain. He reports that they were at a large family gathering recently. One of his grandsons became sick with bouts of nausea vomiting and diarrhea. He states this was roughly 2 days ago. He reports that today he developed similar symptoms of approximately 5 episodes of emesis and diarrhea/loose stool. He reports that this evening he was trying to shower and he was so weak that he cannot hold himself up and fell. He states that he could not get up secondary to his generalized weakness. He denies striking his head or any loss of consciousness. He denies any history of bleeding disorder or blood thinner use. However with his persistent symptoms and increased weakness there was concern he would not do well at home and EMS was called and he was brought in for evaluation [facility] Medical History Chronic neck and back pain Limb weakness Fatigue Heart disease Shoulder pain SOB (shortness of breath) Cancer Cancer High cholesterol Personal history of colonic polyps Constipation Home Medications ?Medication ?Instructions ?Recorded ?Last Taken ?Type acetaminophen 325 mg tablet 325 mg PO ONCE PRN 06/19/22 Unknown History (Tylenol) metoprolol succinate 25 mg 25 mg PO Q12H 06/19/22 Unknown History tablet,extended release 24 hr azithromycin 250 mg tablet See Rx Instructions PO .COMPLEX #6 01/14/24 Unknown Rx tabs rosuvastatin 20 mg tablet 20 mg PO QHS 01/14/24 Unknown History sacubitril 24 mg-valsartan 26 mg 1 tab PO BID 01/14/24 Unknown History tablet (Entresto) amoxicillin 500 mg tablet 500 mg PO TID #30 tabs 09/12/24 Unknown Rx aspirin 81 mg capsule 81 mg PO DAILY 10/26/24 Unknown History diphenoxylate-atropine 2.5 1 tab PO BID PRN diarrhea 7 days 10/26/24 Unknown Rx mg-0.025 mg tablet (Lomotil) #14 tabs ondansetron 4 mg disintegrating 4 mg PO TID PRN nausea and 10/26/24 Unknown Rx tablet vomiting #21 tabs Allergy/AdvReac Type Severity Reaction Status Date / Time No Known Allergies Allergy Verified 10/26/24 04:35 Family History no significant family his Surgical History H/O shoulder replacement History of prostatectomy Social History Smoking Status: Former smoker alcohol intake: never substance use type: does not use ROS ROS ED Constitutional Constitutional ED: Reports chills, fever(s) and subjective Eyes Eyes: Denies blurry vision or change in vision ENT ENT ED: Denies rhinorrhea or sore throat Cardiovascular Cardiovascular: Reports racing heartbeat and other Details: Negative syncope ; Denies chest pain or palpitations Respiratory/Chest Respiratory/Chest: Denies cough or dyspnea Gastrointestinal Gastrointestinal: Reports diarrhea, nausea and vomiting; Denies abdominal pain or melena Genitourinary Genitourinary ED: Denies dysuria or hematuria Musculoskeletal Musculoskeletal: Reports myalgias Integumentary Denies rash Neurologic Neurologic: Reports weakness; Denies headache(s) or paresthesias Hematologic/Lymphatic Hematologic/Lymphatic: Denies easy bleeding or easy bruising EXAM Physical Exam Const Vital Signs: 10/26/24 04:35 10/26/24 04:37 10/26/24 06:35 Temperature 98.2 F 98.2 F Temperature Source Oral Oral Pulse Rate 93 93 103 H Respiratory Rate 20 H 20 H 18 Blood Pressure 115/62 115/62 146/68 H Blood Pressure Mean 79 79 94 Pulse Ox 98 98 91 Oxygen Delivery Method Room Air Room Air Room Air Positive well nourished, well developed and obese General Appearance ED: well developed; Negative for pallor Nutritional Appearance: obese HEENT Reports dry mucous membranes HEENT Narrative: Mucous membranes are dry and tacky No tongue or lip swelling no oral lesions no airway edema or compromise No secondary findings in the posterior pharynx to suggest infection Mouth ED: Yes dry mucous membranes Mouth: dry mucous membranes Eyes PERRL and EOMs intact bilaterally General Eye ED: Negative for scleral icterus Neck supple Neck Narrative: No nuchal rigidity or meningeal signs noted Resp normal respiratory effort and clear to auscultation bilaterally Cardio regular rhythm Rate: tachycardic and other Other Details: Tachycardic rate with regular rhythm Radial and carotid pulses are equal and symmetric GI non-tender, non-distended and no masses GI Narrative: Abdomen is soft nontender and nondistended with hyperactive bowel sounds No voluntary guarding or rigidity No pulsatile mass or fluid wave Auscultation: hyperactive bowel sounds Palpation: soft Extremity Extremity Narrative: Trace to +1 pitting edema to the bilateral lower extremities that is equal and symmetric and chronic per patient Negative Homans' sign bilaterally Neuro oriented x3, CN's II-XII intact bilaterally and no sensory deficits noted Neuro Narrative: GCS of 15 Cranial nerves II through XII are grossly intact without focal neurologic deficit Patient has generalized weakness/fatigue without focal finding NIH stroke scale score of 0 Sensorium / Orientation: alert Psych mental status grossly normal Skin no rashes or lesions noted, no wounds and No skin turgor normal Skin Narrative: Skin turgor is increased consistent with dehydration General Skin Exam: Negative for jaundice or pallor MDM MDM MDM Narrative Medical decision making narrative: Patient arrived to the ER afebrile and normotensive. However his heart rate was at the upper limit of normal and his history and exam is concerning for dehydration. Secondary to this even though he has history of heart failure I did feel that it was necessary to provide him with IV hydration and 1 L of normal saline was given. With his reports of vomiting and diarrhea Zofran and Lomotil were provided. The patient did recently travel to the [facility] but he states he goes there yearly and did not have symptoms till after his nephew became sick. Otherwise he does not take daily antibiotics or have exposure to livestock and my concern for infectious diarrhea such as Salmonella Shigella or C. difficile is low and I do not feel the need for a stool study especially as he is only had symptoms for roughly 24 hours. With his family member having similar symptoms this is most likely norovirus versus rotavirus. In order to ensure he does not have acute kidney injury or severe electro abnormality or findings concerning for pancreatitis or biliary colic basic labs were obtained. Labs showed that his BUN and creatinine were slightly elevated with a BUN changing from 18 in January 2024 to a value of 30 and the creatinine increasing from a value of 18 in January 2024 to a value of 1.5 today. As the BUN and creatinine are elevated I feel this is dehydration related and the patient does not take blood thinners or have a history of ulcers and denied black or coffee- ground emesis so did not feel the need for a CTA. After receiving Zofran Lomotil and IV hydration the patient had no further bouts of vomiting or diarrhea. He was able to get up and ambulate from into a chair without difficulty. Therefore at this time with improvement of his symptoms workup revealing no signs of acute kidney injury or clinically significant electrolyte abnormality and the fact the patient has demonstrated he is able to ambulate I do not feel there is need for admission and he is otherwise safe for discharge History & Record Review Discussion w/independent historian: Patient and Family Lab Data Attestation: I reviewed the patient's lab results. Labs: Laboratory Results - last 24 hr 10/26/24 04:55 WBC 11.9 H RBC 4.17 L Hgb 13.3 Hct 40.6 MCV 97.4 H MCH 31.9 MCHC 32.8 RDW Std Deviation 48.3 H RDW Coeff of Zoey 13.5 Plt Count 146 L MPV 10.6 Immature Gran % (Auto) 0.700 Neut % (Auto) 91.6 H Lymph % (Auto) 4.6 L Rolette % (Auto) 2.8 Eos % (Auto) 0.0 Baso % (Auto) 0.3 Absolute Neuts (auto) 10.9 H Absolute Lymphs (auto) 0.55 L Nucleated RBC % 0 Sodium 137 Potassium 4.5 Chloride 104 Carbon Dioxide 22.0 Anion Gap 11 BUN 30 H Creatinine 1.46 H Estim Creat Clear Calc 47.52 Est GFR (MDRD) Af Amer 60 Est GFR (MDRD) Non-Af 49 L BUN/Creatinine Ratio 20.5 H Glucose 163 H Calcium 8.9 Magnesium 2.0 Total Bilirubin 1.10 H Direct Bilirubin 0.23 AST 37 ALT 34 Alkaline Phosphatase 81 Total Protein 7.4 Albumin 3.5 Globulin 3.9 Lipase 35 Discharge Plan Triage Chief Complaint: Nausea/Vomiting/Diarrhea ED Provider: Jose David Rain Dx/Rx/DC Orders Clinical Impression: Nausea vomiting and diarrhea, Dehydration, Generalized muscle weakness, Chronic neck and back pain, Congestive heart failure Instructions: ED Dehydration (Adult), ED Gastroenteritis, Viral (Adult) Prescriptions: New ondansetron 4 mg tablet,disintegrating 4 mg PO TID PRN (Reason: nausea and vomiting) Qty: 21 1RF diphenoxylate-atropine [Lomotil] 2.5-0.025 mg tablet 1 tab PO BID PRN (Reason: diarrhea) 7 Days Qty: 14 0RF No Action metoprolol succinate 25 mg tablet extended release 24 hr 25 mg PO Q12H Patient Comments: take 1 tablet by mouth once daily acetaminophen [Tylenol] 325 mg tablet 325 mg PO ONCE PRN Entresto 24-26 mg tablet 1 tab PO BID rosuvastatin 20 mg tablet 20 mg PO QHS azithromycin 250 mg tablet See Rx Instructions PO .COMPLEX Qty: 6 0RF Rx Instructions: take 500 mg today (day 1), then 250 mg for 4 days (days 2-5) PO amoxicillin 500 mg tablet 500 mg PO TID Qty: 30 0RF aspirin 81 mg capsule 81 mg PO DAILY Primary Care Provider: Tereso Doe Referrals: Tereso Doe MD [Primary Care Provider] - Activity Restrictions/Additional Instructions: Your history and exam today is consistent with a viral stomach infection known as gastroenteritis. This can last anywhere from 12 hours to 7/10 days with the average being 3 days. Keep yourself well-hydrated and use the medication that was prescribed as directed to help control symptoms. If you have any further concerns or worsening of symptoms please return to the ER for repeat evaluation Print Language: [place] Tim[place]se Disposition Disposition: Home, Self Care
[2024-10-26 05:00] LABS: Absolute Lymphocyte Count 0.55 X10^3/uL (0.83-4.51); Absolute Neutrophil Count 10.9 X10^3/uL (2.0-7.7); Basophil# 0.03 X10^3/uL; Basophil% 0.3 % (0-1); Hematocrit 40.6 % (40-54); Hemoglobin 13.3 g/dL (13.0-16.5); Lymphocyte # 0.55 X10^3/ul (0.83-4.51); Lymphocyte % 4.6 % (19-41); Mean Corp Hgb Conc 32.8 g/dL (32-36); Mean Corpuscular Hgb 31.9 pg (27.0-32.0); Mean Corpuscular Volume 97.4 fL (80-94); Mean Platelet Vol. 10.6 fl (6.2-12.0); Monocyte# 0.33 X10^3/uL; Monocyte% 2.8 % (0-10); NRBC Flagged by Analyzer 0 % (0-5); Neutrophil # 10.93 X10^3/uL (2.7-7.7); Neutrophil % 91.6 % (47-70); POSITIVE DIFFERENTIAL YES; Platelet Count 146 K/mm3 (150-450); RBC Distribution Width CV 13.5 % (11.6-14.6); RBC Distribution Width SD 48.3 fl (35.1-43.9); Red Blood Count 4.17 M/mm3 (4.6-6.2); White Blood Count 11.9 K/mm3 (4.4-11.0)
[2024-10-26] MEDS: 0.9% Normal Saline (1000mL) 1,000 ML 999 ML IV (05:01)
[2024-10-26] MEDS: Ondansetron 4 MG/2 ML Vial IV ×2 (05:01→05:41)
[2024-10-26 05:21] LABS: AST(SGOT) 37 U/L (15-37); Alanine Aminotransfer ALT/SGPT 34 U/L (16-61); Albumin, Serum 3.5 g/dL (3.2-5.0); Alkaline Phosphatase 81 U/L (45-117); Anion Gap 11 (5-15); BUN 30 mg/dL (7-18); BUN/Creat Ratio 20.5 RATIO (10-20); Bilirubin, Direct 0.23 mg/dL (0.00-0.30); Calcium,Total 8.9 mg/dL (8.5-10.1); Chloride 104 mmol/L (98-107); Creatinine, Serum 1.46 mg/dL (0.70-1.30); EST Glomerular Filtration Rate 49 mL/min (>60); Est Glom Filt Rate - Afr Amer 60 mL/min (>60); Estimated Creatinine Clearance 47.52 ml/min; Globulin 3.9 g/dL (2.2-4.2); Glucose 163 mg/dL (74-106); Lipase 35 U/L (13-75); Potassium 4.5 mmol/L (3.5-5.1); Protein, Total 7.4 g/dL (6.4-8.2); Sodium Level 137 mmol/L (136-145)
[2024-10-26] MEDS: Diphenoxylate/Atrop 1 Tablet PO (05:22)
[2024-10-26 06:35] VITALS: BP 146/68; PULSE 103; RESP 18; O2SAT 91
[2024-10-26 06:42] VITALS: BP 146/68; PULSE 103; RESP 18; TEMP 36.9; O2SAT 91
[2024-10-26 06:45] VITALS: O2SAT 96
== END 2024-10-26 07:18 | disposition home or self-care (01) ==
PROVIDERS: Emergency Provider Emergency Medicine; PCP Family Medicine; Visit Provider Emergency Medicine
DX: R11.2 Nausea with vomiting, unspecified (principal); I50.9 Heart failure, unspecified; I11.0 Hypertensive heart disease with heart failure; E86.0 Dehydration; M62.81 Muscle weakness (generalized); Z87.891 Personal history of nicotine dependence; R19.7 Diarrhea, unspecified; E78.00 Pure hypercholesterolemia, unspecified; Z79.899 Other long term (current) drug therapy; Z96.619 Presence of unspecified artificial shoulder joint; G89.29 Other chronic pain; M54.2 Cervicalgia
CPT/HCPCS: 80048; 80076; 83690; 83735; 85025; 99285; A4216; J2405

== ENCOUNTER → 2024-11-14 | Outpatient (CLI) | payer MEDICARE, SELFPAY ==
--- NOTE | 2024-11-14 14:07 | RAD_ITS ---
EXAM: RIBS UNI MIN 3V W/PA CHEST CLINICAL HISTORY: Pain following a recent fall. COMPARISON: None. TECHNIQUE: Four views were obtained. FINDINGS: Healed left rib fractures. No acute fracture is seen. Demineralization of the thoracic vertebrae with minimal loss of height. RAD/Ribs Uni Min 3V w/PA Chest IMPRESSION: No acute fracture is seen. Reading Location: [facility]
--- NOTE | 2024-11-14 14:07 | RAD_ITS ---
EXAM: SHOULDER MIN 2 VIEWS CLINICAL HISTORY: Pain following a recent fall. COMPARISON: None. TECHNIQUE: 3 FINDINGS: The patient is status post right shoulder replacement. There is good alignment. No acute abnormality is seen. RAD/Shoulder min 2 Views IMPRESSION: Status post right reverse shoulder replacement. No acute abnormality is seen. Reading Location: [id number]
--- NOTE | 2024-11-14 14:07 | RAD_ITS ---
EXAM: XR Left Hip With Pelvis When Performed, 1 View CLINICAL INDICATION: TECHNIQUE: Frontal view of the left hip with pelvis when performed. COMPARISON: No relevant prior studies available. FINDINGS: BONES/JOINTS: Unremarkable. No acute fracture. No dislocation. SOFT TISSUES: Unremarkable. RAD/HIP, UNI W/ Pelvis 2-3 Views IMPRESSION: Normal left hip x-ray. Reading [facility]
--- NOTE | 2024-11-14 14:07 | RAD_ITS ---
EXAM: XR Left Knee, 1 or 2 Views CLINICAL INDICATION: TECHNIQUE: Frontal and/or lateral views of the left knee. COMPARISON: No relevant prior studies available. FINDINGS: BONES/JOINTS: Unremarkable. No acute fracture. No dislocation. SOFT TISSUES: Unremarkable. RAD/Knee 1 or 2 Views IMPRESSION: No acute fracture. Reading [facility]
--- NOTE | 2024-11-14 14:07 | RAD_ITS ---
EXAM: LUMBAR SPINE 2 OR 3 VIEWS CLINICAL HISTORY: Back pain following a fall. COMPARISON: None. TECHNIQUE: AP and lateral views were obtained. FINDINGS: There is complete collapse of the L3 vertebrae. This most likely is old. Disc space narrowing. Demineralization of the lumbar vertebrae. Atherosclerotic calcification of the abdominal aorta. Minimal levoscoliosis. 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 Degenerative changes. Osteoporosis of the lumbar vertebrae. Reading Location: [id number]
== END | disposition home or self-care (01) ==
LOC: MTRAD 14:07
PROVIDERS: PCP Family Medicine; Referring Provider Physician Assistant; Visit Provider Physician Assistant
DX: M48.56XA Collapsed vertebra, not elsewhere classified, lumbar region, initial encounter for fracture (principal); M81.0 Age-related osteoporosis without current pathological fracture; W19.XXXA Unspecified fall, initial encounter
CPT/HCPCS: 71101; 72100; 73030; 73502; 73560

== ENCOUNTER 2025-04-23 13:30 | Outpatient (RCR) | payer MEDICARE, SELFPAY ==
--- NOTE | 2025-03-01 16:08 | HP.PTEVAL ---
Patient's Visit Information Visit Information Visit Information: HERNAN ROCK Sr. is a 84 year old M referred to Physical Therapy by Dr. Bruce Salvador MD with a diagnosis of Wedge compression fracture of third lumbar verebra. Date of Evaluation: 03/01/25 Physical Therapist: Hawk Diaz, PT, Cert MDT, OCS Visit Plan Frequency: 2x /Week Duration: 4 Weeks Plan: COMPRESSION FX L3 PRECAUTIONS: OSTEOPOROSIS USES W/C WALKS SHORT DISTANCES WITH CANE PT INTERVENTIONS POSTURAL EX'S ,DLS ,BLE STRENGTHENING ,ACTIVITY MODIFICATION ,AND FUNCTIONAL STRENGTHENING Subjective Subjective: This 84 y/o male presents to physical therapy with compression fracture of third vertebrae. Patient fell Oct 2024 at home in bathroom on back . Patient went [facility] . Patient then seen [facility] . Patient seen DR CLEARY reviewed x-rays showed Almost complete collapse of the L3 vertebrae most likely chronic in nature and osteoporosis. Seen DR Bruce Salvador reviewed x-rays compression fx . Recommended PT . DR stated not candidate for surgical candidate for surgery. Patient also has osteoporosis. Patient location symmetrical lumbar. Described as ache. Patient uses cane limited at home . Patient uses w/c at walker at home majority of time at time. Denies paresthesia/tingling -. Coughing/sneezing initially but better. Patient sleeping in recliner. Patient unable to lay supine. Aggravating factors walking/standing. Alleviating factors rest ,10-15 mins sitting. Patient lives 1 story home with 2 steps rails. Patient lives in walkin in shower with chair. Patient does cooking. Patient condition affects QOL and function/walking.Patient goals to get stronger. 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 Pain Bilateral Back: Pain Intensity (Out of 10): 4 Pain Intensity Range: 10 Objective Objective: POSTURE: mod forward posture ,thoracic kyphosis , trunk flexed ,hips/knees knees GAIT: ambulates with trunk flexed forward ,thoracic kyphosis with hips/knees flexed slow christiana with 2 point gait with cane slow christiana BALANCE: Fair+ with cane NEURO: denies paresthesia/tingling PALPATION: tender paraspinals /erector MMT: ( peak force) quads right 16.2,left 16.8 ,hamstrings right 15.2 ,left 15.4 ,hip flexion left 13.3 ,right 13.9 ankle 4/5 BUE grossly 4/5 ,shoulders 4-/5 LUMBAR ROM: flexion mod loss ,extension severe loss ,side glides mod loss Special Tests L/S Slump test left side: Negative L/S Slump test right side: Negative L/S Left Straight Leg Raise: Negative Balance/Special Test Scores Oswestry Low Back Score: 30 Goals Goal 1:: Patient to be I with HEP for back Goal Time Frame: 4-6 Weeks Goal 2:: Patient to improve lumbar ROM for function of recovery for ADLS Goal Time Frame: 4-6 Weeks Goal 3:: Patient to improve peak force quads/hams/hip by 5 # to improve gait and function Goal Time Frame: 4-6 Weeks Goal 4:: Patient to improve back oswestry score by 5 points to improve QOL and function Goal Time Frame: 4-6 Weeks Goal 5:: Patient to demonstrate 40% improvement with less pain and improved function Goal Time Frame: 4-6 Weeks Rehabilitation Potential Physical Therapy Diagnosis: This patient has compression fx lumbar 3rd with impaired ROM ,pain .weakness in legs thus impairs gait and function pain worse with standing/walking thus benefit from skilled PT Rehabilitation Potential: Good Anticipated Interventions Patient/Client Instruction: Educate patient on: Condition and Plan of Care For the Purpose of:: To decrease pain, To increase ROM, To increase oxygenation perfusion, To improve ability to perform ADL's, To increase tolerance to activity/condition/position, To improve performance and independence with ADL's, To improve ability of physical actions for home/community/work/leisure, To improve gait and locomotor functions, To increase flexibility/ROM, To improve endurance, To improve balance and To improve tolerance to ADL's Therapeutic Exercise to Include: Strength training, Endurance training, Balance training, Postural training, Flexibilty training, Gait and locomotor training and Dynamic Lumbar Stabilization Comment: QUADS/HAMS/HIP For the Purpose of:: To decrease pain, To increase ROM, To improve muscle performance and motor function, To improve ability to perform ADL's, To increase tolerance to activity/condition/position, To improve ability of physical actions for home/community/work/leisure, To improve health of tissue, To decrease soft tissue restriction, To increase flexibility/ROM, To improve endurance, To improve balance and To improve tolerance to ADL's Text: Thank you for the opportunity to evaluate your patient. For Medicare and Medicare HMO plans, please review the plan of care and approve it. It will need to be FAXED BACK to us at [phone] for Medicare purposes. For Medicare only, by signing this I certify the plan of care. Please let me know if there are questions or concerns regarding this plan of care. Physician Signature: Date:
== END 2025-04-23 19:00 | disposition home or self-care (01) ==
LOC: PT 13:30
PROVIDERS: PCP Family Medicine; Referring Provider Orthopaedic Surgery; Visit Provider Orthopaedic Surgery
DX: S32.030D Wedge compression fracture of third lumbar vertebra, subsequent encounter for fracture with routine healing (principal)
CPT/HCPCS: 97110; 97162; 97530